=== PATIENT | female | born 1965 | race Two or more races ===

== ENCOUNTER 2017-03-25 11:16 | Emergency (ER) | payer SELFPAY ==
[2017-03-25 11:52] VITALS: BP 117/71
[2017-03-25] MEDS ORDERED: Ibuprofen TAB* 600 MG PO ONE (11:59)
--- NOTE | 2017-03-25 12:21 | RAD ---
HISTORY: Right foot pain COMPARISONS: None VIEWS: 3, Frontal, lateral, and oblique views of the right foot FINDINGS: BONE DENSITY: Normal. BONES: There is no displaced fracture. There is a calcaneal enthesophyte. JOINTS: There is mild osteophytosis of the first MTP joint ALIGNMENT: There is no dislocation. SOFT TISSUES: Unremarkable. OTHER FINDINGS: None. IMPRESSION: MILD DEGENERATIVE CHANGES. NO ACUTE OSSEOUS INJURY. IF SYMPTOMS PERSIST, RECOMMEND REPEAT IMAGING.
--- NOTE | 2017-03-25 12:45 | UC ---
Berkley Duron Auryana, scribed for Abel Juarez MD on 03/25/17 at 1203 . Lower Extremity/Ankle HPI - HPI Summary HPI Summary: 51 year old females presents with right foot pain. She reports that she fell down this stairs at 09:30 this morning. She states that the pain radiates up the right calf and mildly swollen. Ambulation makes the pain worse and states there was no improvement with elevation. 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 PMHx is significant for osteoporosis - History of Current Complaint Chief Complaint: UCLowerExtremity Stated Complaint: FELL-RIGHT FOOT Time Seen by Provider: 03/25/17 11:47 Hx Obtained From: Patient Hx Last Menstrual Period: menapause ?: No Onset/Duration: Sudden Onset, Lasting Hours - stating this morning at 09:30, Still Present Severity Initially: Mild Severity Currently: Mild Aggravating Factor(s): Ambulation Alleviating Factor(s): Nothing Able to Bear Weight: No - limping and must have help Related History: Other - fell down stairs - Allergies/Home Medications Allergies/Adverse Reactions: Allergies Allergy/AdvReac Type Severity Reaction Status Date / Time Molds & Smuts Allergy Severe CAN'T Verified 06/11/16 15:07 BREATHE, HIVES Penicillins Allergy Severe Shortness Verified 06/11/16 15:07 of Breath Aspirin Allergy Intermediate Nausea And Verified 06/11/16 15:07 Vomiting Naproxen [From Aleve] Allergy Mild Vomiting Verified 06/11/16 15:07 CHIPOTLE Allergy Severe "SICK", Uncoded 06/11/16 15:07 NAUSEA CLAMS Allergy Severe HIVES, Uncoded 06/11/16 15:07 "MAKES ME SICK" ENVIRONMENTAL Allergy Unknown Unknown Uncoded 06/11/16 15:07 Reaction Details MICE Allergy Unknown Unknown Uncoded 06/11/16 15:08 Reaction Details PMH/Surg Hx/FS Hx/Imm Hx Endocrine History Of: Denies: Diabetes, Thyroid Disease Cardiovascular History Of: Reports: Cardiac Disorders - MURMUR Denies: Hypertension Respiratory History Of: Reports: Asthma - uses nebulizer, Bronchitis Denies: COPD GI/ History Of: Denies: Ulcer Cancer History Of: Denies: Breast Cancer - Surgical History Surgical History: Yes Surgery Procedure, Year, and Place: tubal ligation. cholecystectomy - Family History Known Family History: Positive: Hypertension, Diabetes, Other - cervical cancer - Social History Occupation: Disabled Lives: With Family Alcohol Use: None Substance Use Type: None Smoking Status (MU): Heavy Every Day Tobacco Smoker Type: Cigarettes Amount Used/How Often: 10-12 cigs daily Length of Time of Smoking/Using Tobacco: 20+ years Have You Smoked in the Last Year: Yes Review of Systems Constitutional: Negative Skin: Negative Eyes: Negative ENT: Negative Respiratory: Negative Cardiovascular: Negative Gastrointestinal: Negative Genitourinary: Negative Motor: Negative Neurovascular: Negative Musculoskeletal: Edema - at the first MCP on the right foot, Other: - pain at the first MCP on the right foot Neurological: Negative Psychological: Negative All Other Systems Reviewed And Are Negative: Yes Physical Exam Triage Information Reviewed: Yes Appearance: Well-Nourished, Pain Distress - mild Vital Signs: Initial Vital Signs Temp 98.4 F 03/25/17 11:42 Pulse 65 03/25/17 11:42 Resp 18 03/25/17 11:42 BP 117/71 03/25/17 11:42 Pulse Ox 98 03/25/17 11:42 Vital Signs Reviewed: Yes Eyes: Positive: Conjunctiva Clear Neck: Positive: Supple Respiratory: Positive: Lungs clear Cardiovascular: Positive: RRR Bowel Sounds: Positive: Present Musculoskeletal: Positive: Edema @ - at site of injury, Other: - tenderness at the right first MCP of the foot Neurological: Positive: Alert Psychological: Positive: Age Appropriate Behavior Skin Exam: Normal, Other - no break in the skin Diagnostics - Radiology R FOOT XR Xray Interpretation: No Acute Changes - IMPRESSION: MILD DEGENERATIVE CHANGES. NO ACUTE OSSEOUS INJURY. IF SYMPTOMS PERSIST, RECOMMEND REPEAT Radiology Interpretation Completed By: Radiologist Lower Extremity Course/Dx - Course Course Of Treatment: HOME WITH CAM WALKER - Differential Dx/Diagnosis Provider Diagnoses: RT FOOT SPRAIN Discharge - Discharge Plan Condition: Stable Disposition: HOME Patient Education Materials: Foot Sprain (ED) Referrals: Madhavi Moreno MD [Primary Care Provider] - Additional Instructions: FOLLOW UP WITH YOUR DOCTOR. GO THE EMERGENCY DEPARTMENT WITH ANY WORSENING OF YOUR CONDITION OR QUESTIONS OR CONCERNS. The documentation as recorded by the Berkley chase Auryana accurately reflects the service I personally performed and the decisions made by , Abel Juarez MD.
== END 2017-03-25 12:52 | disposition home or self-care (01) ==
LOC: UCEAST 11:16
DX: S93.601A Unspecified sprain of right foot, initial encounter (principal); W10.9XXA Fall (on) (from) unspecified stairs and steps, initial encounter; Y93.9 Activity, unspecified; Y92.9 Unspecified place or not applicable; J45.909 Unspecified asthma, uncomplicated; R01.1 Cardiac murmur, unspecified; Z90.49 Acquired absence of other specified parts of digestive tract; Z88.6 Allergy status to analgesic agent; Z88.0 Allergy status to penicillin; F17.210 Nicotine dependence, cigarettes, uncomplicated
CPT/HCPCS: 99213; A9270-GY; G0463

== ENCOUNTER 2017-06-27 09:43 | Emergency (ER) | payer MEDICARE, OTHER ==
[2017-06-27 09:49] VITALS: BP 120/67
[2017-06-27] MEDS ORDERED: Ketorolac INJ* 60 MG/2 ML VIAL IM ONE (10:32)
--- NOTE | 2017-06-27 10:41 | ED ---
Lower Extremity - HPI Summary HPI Summary: Patient presents with left ankle pain without injury. She notes to swelling x 2 weeks which dissipated yesterday, but continues with 8/10 constant pain not worse with palpation. Better with rest, worse with ambulating. Pain is located diffusely throughout the ankle, but worse medially and anteriorly over the dorsum of the foot. She also notes to right shoulder pain x 2 days and this morning felt a "pop" while stretching. She has no limit to her ROM and pain does not radiate. PMHx includes arthritis and is followed by her PCP. Good pulses +2 bilaterally. Good capillary refill <2 sec. Denies other illness. Thorough physical exam was performed, focusing on ankle special tests including foot exam. Pain on palpation over medial aspect and superior aspect with involvement of the deltoid ligaments. No pain on palpation over lateral side. Anterior drawer test negative, talar tilt test negative. Huizar test negative, although performed in supine position. Limited ROM. Dorsiflexion, great toe extension and plantar flexion intact. No pain on palpation over medial or lateral lower extremity. No pain in the calf and patient denies recent surgery or travel. No pain with knee flexion. Pulses intact bilaterally. No temperature change or pallor noted bilaterally. No ecchymosis and swelling noted on lateral aspect. No lesion or disruption of skin is seen. Able to bear weight. Shoulder exams performed with no acute findings. Will defer at this time for xray and patient agrees. - History of Current Complaint Chief Complaint: EDExtremityLower Stated Complaint: LEFT ANKLE PAIN, RIGHT SHOULDER INJURY Time Seen by Provider: 06/27/17 09:52 Hx Obtained From: Patient Hx Last Menstrual Period: menapause Mechanism Of Injury: Unknown Onset of Pain: Days Onset/Duration: Weeks Severity Initially: Moderate Severity Currently: Moderate Pain Intensity: 4 Pain Scale Used: 0-10 Numeric Timing: Constant Location: Is Discrete @ - left ankle medially Associated Signs And Symptoms: Positive: Negative Aggravating Factor(s): Standing, Ambulation Alleviating Factor(s): Rest - Allergies/Home Medications Allergies/Adverse Reactions: Allergies Allergy/AdvReac Type Severity Reaction Status Date / Time Molds & Smuts Allergy Severe CAN'T Verified 06/11/16 15:07 BREATHE, HIVES Penicillins Allergy Severe Shortness Verified 06/11/16 15:07 of Breath Aspirin Allergy Intermediate Nausea And Verified 06/11/16 15:07 Vomiting Naproxen [From Aleve] Allergy Mild Vomiting Verified 06/11/16 15:07 CHIPOTLE Allergy Severe "SICK", Uncoded 06/11/16 15:07 NAUSEA CLAMS Allergy Severe HIVES, Uncoded 06/11/16 15:07 "MAKES ME SICK" ENVIRONMENTAL Allergy Unknown Unknown Uncoded 06/11/16 15:07 Reaction Details MICE Allergy Unknown Unknown Uncoded 06/11/16 15:08 Reaction Details PMH/Surg Hx/FS Hx/Imm Hx Previously Healthy: Yes Endocrine/Hematology History: Denies: Hx Diabetes, Hx Thyroid Disease Cardiovascular History: Denies: Hx Hypertension Respiratory History: Reports: Hx Asthma - uses nebulizer Denies: Hx Chronic Obstructive Pulmonary Disease (COPD) - never been diagnosed GI History: Denies: Hx Ulcer Musculoskeletal History: Reports: Hx Osteoporosis - Cancer History Cancer Type, Location and Year: denies Hx Chemotherapy: No Hx Radiation Therapy: No - Surgical History Surgery Procedure, Year, and Place: tubal ligation. cholecystectomy - Immunization History Date of Tetanus Vaccine: unknown Date of Influenza Vaccine: UTD Hx Pertussis Vaccination: No Immunizations Up to Date: Unable to Obtain/Confirm Infectious Disease History: No Infectious Disease History: Denies: Hx Clostridium Difficile, Hx Hepatitis, Hx Human Immunodeficiency Virus (HIV), Hx of Known/Suspected MRSA, Hx Shingles, Hx Tuberculosis, Hx Known/ Suspected VRE, Hx Known/Suspected VRSA, History Other Infectious Disease, Traveled Outside the [place] in Last 30 Days - Family History Known Family History: Positive: Hypertension, Diabetes, Other - cervical cancer - Social History Occupation: Unemployed, Employed Full-time Lives: With Family Alcohol Use: None Hx Substance Use: No Substance Use Type: Reports: None Hx Tobacco Use: Yes Smoking Status (MU): Heavy Every Day Tobacco Smoker Type: Cigarettes Amount Used/How Often: 10-12 cigs daily Length of Time of Smoking/Using Tobacco: 20+ years Have You Smoked in the Last Year: Yes Review of Systems Constitutional: Negative Eyes: Negative Positive: Palpitations Respiratory: Negative Positive: no symptoms reported, see HPI Positive: Arthralgia, Myalgia Skin: Negative Neurological: Negative All Other Systems Reviewed And Are Negative: Yes Physical Exam Triage Information Reviewed: Yes Vital Signs On Initial Exam: Initial Vitals Temp Pulse Resp BP Pulse Ox 97.3 F 71 17 120/67 98 06/27/17 09:46 06/27/17 09:46 06/27/17 09:46 06/27/17 09:46 06/27/17 09:46 Vital Signs Reviewed: Yes Appearance: Positive: Well-Appearing, Well-Nourished Skin: Positive: Warm, Skin Color Reflects Adequate Perfusion Neck: Positive: Supple, No Lymphadenopathy Respiratory/Lung Sounds: Positive: Clear to Auscultation, Breath Sounds Present Musculoskeletal: Positive: Normal - see HPI Neurological: Positive: Sensory/Motor Intact, Alert, Oriented to Person Place, Time, Speech Normal Psychiatric: Positive: Normal Diagnostics - Vital Signs Vital Signs Temp Pulse Resp BP Pulse Ox 06/27/17 10:10 97.3 F 71 20 120/67 98 06/27/17 09:46 97.3 F 71 17 120 98 - Laboratory Lab Statement: Any lab studies that have been ordered have been reviewed, and results considered in the medical decision making process. Lower Extremity Course/Dx - Course Course Of Treatment: Based on [place] [facility] Rules, patient sent to imaging. Xray negative for fracture or other acute findings. Medial and lateral distal lower extremity without pain and x-rays show no widening of the ankle joint regarding low suspicion for Maisonneuve fx. Ankle was malorie wrapped to patient comfort to allow for immobilization for this period of time. Patient given orthopedic follow up in 5-7 days. Encouraged Ibuprofen 600mg three times daily with meals for pain. Return precautions given. Educated patient regarding ankle injuries and healing time and the possibility of further evaluation and imaging as orthopedist sees fit. - Diagnoses Differential Diagnosis/HQI/PQRI: Positive: Fracture (Closed), Sprain, Strain Provider Diagnoses: Arthritis Discharge - Discharge Plan Condition: Stable Disposition: HOME Prescriptions: Ketorolac TAB * [Toradol TAB *] 10 mg PO Q6H #16 tab Patient Education Materials: Osteoarthritis (ED) Referrals: Madhavi Moreno MD [Primary Care Provider] - Additional Instructions: Toradol x 4 days Do not take ibuprofen with this medication Ibuprofen 600mg three times daily with meals for pain. Follow up with orthopedic physician in 5-7 days. If numbness, tingling, decreased sensation, increased pain, temperature changes or pallor noted in toes, come back to ER immediately. Ice. Not directly on the skin. Cover with a towel. Apply ice no more than 30 minutes at a time Compression: You may use and keep an malorie wrap bandage over the injury to decrease swelling. Again, this should be limited and be taken off periodically to encourage early range of motion and mobilization. Elevate: Try to elevate the injured area above the heart whenever possible.
--- NOTE | 2017-06-27 11:17 | RAD ---
Indication: LEFT ankle pain and swelling without proceeding injury. Attention medial aspect. Comparison: No relevant prior exams available on the [facility] for comparison. Technique: AP, mortise, and lateral views LEFT ankle. Report: Negative for fracture or malalignment. Mild osteophytosis at the talocrural joint. Potential 3 mm loose body at the posterior joint recess. Suggestion of small talocrural joint effusion at the posterior recess. Small plantar fascia origin and Achilles tendon insertion bone spurs. Mild nonfocal soft tissue swelling. IMPRESSION: Mild talocrural joint osteoarthritis with potential small loose body at the posterior joint recess.
== END 2017-06-27 11:53 | disposition home or self-care (01) ==
LOC: ED 09:43
DX: M19.072 Primary osteoarthritis, left ankle and foot (principal); M81.0 Age-related osteoporosis without current pathological fracture; J45.909 Unspecified asthma, uncomplicated; Z90.49 Acquired absence of other specified parts of digestive tract; Z88.6 Allergy status to analgesic agent; Z88.0 Allergy status to penicillin; F17.210 Nicotine dependence, cigarettes, uncomplicated
CPT/HCPCS: 96372; 99282; J1885

== ENCOUNTER 2018-01-03 20:35 | Emergency (ER) | payer MEDICARE, MEDICAID ==
[2018-01-03] MEDS ORDERED: Dexamethasone TAB* 4 MG PO ONE (21:24)
[2018-01-03] MEDS ORDERED: Ketorolac INJ* 60 MG/2 ML VIAL IM ONE (21:24)
[2018-01-03] MEDS ORDERED: Lidocaine PATCH 5%* 1 PATCH TRANSDERM SCH (22:00)
--- NOTE | 2018-01-03 22:07 | ED ---
Back Pain - HPI Summary HPI Summary: 52-year-old female presents with right-sided lower back pain today. She has history of osteoporosis and told not to lift her leg. She forgot and stepped out of the shower and lifted her leg. She states she felt a pop in her lower back. She states it started her sciatic pain down her right leg. She denies any saddle anaesthesia or loss of bowel or bladder. She states the tingling starts in the SI joint and travels down her right leg. She has not taken anything for her pain. She generally takes Motrin for her pain. She has history of chronic back pain. She denies any fevers. She denies any other injury. She denies any chest pain or shortness of breath. - History of Current Complaint Chief Complaint: EDFlankPain Stated Complaint: RT SIDE FLANK PAIN Time Seen by Provider: 01/03/18 20:58 Hx Last Menstrual Period: menapause Pain Intensity: 8 - Allergies/Home Medications Allergies/Adverse Reactions: Allergies Allergy/AdvReac Type Severity Reaction Status Date / Time clams Allergy Hives Verified 01/03/18 20:48 mold Allergy Anaphylatic Verified 01/03/18 20:48 Shock Penicillins Allergy Shortness Verified 01/03/18 20:48 of Breath NSAIDS (Non-Steroidal AdvReac Nausea And Verified 01/03/18 22:01 Anti-Inflamma Vomiting ENVIRONMENTAL Allergy Unknown Unknown Uncoded 01/03/18 20:48 Reaction Details MICE Allergy Unknown Unknown Uncoded 01/03/18 20:48 Reaction Details CHIPOTLE AdvReac Severe "SICK", Uncoded 01/03/18 22:01 NAUSEA PMH/Surg Hx/FS Hx/Imm Hx Endocrine/Hematology History: Denies: Hx Diabetes, Hx Thyroid Disease Cardiovascular History: Denies: Hx Hypertension Respiratory History: Reports: Hx Asthma - uses nebulizer Denies: Hx Chronic Obstructive Pulmonary Disease (COPD) - never been diagnosed GI History: Denies: Hx Ulcer Musculoskeletal History: Reports: Hx Osteoporosis - Cancer History Cancer Type, Location and Year: denies Hx Chemotherapy: No Hx Radiation Therapy: No - Surgical History Surgery Procedure, Year, and Place: tubal ligation. cholecystectomy - Immunization History Date of Tetanus Vaccine: unknown Date of Influenza Vaccine: UTD Immunizations Up to Date: Yes Infectious Disease History: No Infectious Disease History: Denies: Hx Clostridium Difficile, Hx Hepatitis, Hx Human Immunodeficiency Virus (HIV), Hx of Known/Suspected MRSA, Hx Shingles, Hx Tuberculosis, Hx Known/ Suspected VRE, Hx Known/Suspected VRSA, History Other Infectious Disease, Traveled Outside the [place] in Last 30 Days - Family History Known Family History: Positive: Hypertension, Diabetes, Other - cervical cancer - Social History Alcohol Use: None Hx Substance Use: No Substance Use Type: Reports: None Hx Tobacco Use: Yes Smoking Status (MU): Heavy Every Day Tobacco Smoker Type: Cigarettes Amount Used/How Often: 10-12 cigs daily Length of Time of Smoking/Using Tobacco: 20+ years Have You Smoked in the Last Year: Yes Review of Systems Negative: Fever Negative: Chest Pain Negative: Shortness Of Breath Positive: Myalgia - back and right leg pain All Other Systems Reviewed And Are Negative: Yes Physical Exam Triage Information Reviewed: Yes Vital Signs On Initial Exam: Initial Vitals Temp Pulse Resp BP Pulse Ox 98.0 F 74 18 115/67 96 01/03/18 20:42 01/03/18 20:42 01/03/18 20:42 01/03/18 20:42 01/03/18 20:42 Vital Signs Reviewed: Yes Appearance: Positive: Well-Appearing Skin: Positive: Warm, Dry Head/Face: Positive: Normal Head/Face Inspection Eyes: Positive: Normal, Conjunctiva Clear Respiratory/Lung Sounds: Positive: Clear to Auscultation, Breath Sounds Present Cardiovascular: Positive: Normal, RRR Musculoskeletal: Positive: Limited @, Other - tenderness over SI joint back, sensation grossly intact, pos SLR right, good pulses Neurological: Positive: Sensory/Motor Intact Psychiatric: Positive: Normal Diagnostics - Vital Signs Vital Signs Temp Pulse Resp BP Pulse Ox 01/03/18 20:42 98.0 F 74 18 115/67 96 - Laboratory Lab Statement: Any lab studies that have been ordered have been reviewed, and results considered in the medical decision making process. - Radiology lumbar Xray Interpretation: No Acute Changes Radiology Interpretation Completed By: Radiologist Back Pain Course/Dx - Course Assessment/Plan: 52-year-old female presents with right-sided lower back pain today. She has history of osteoporosis and told not to lift her leg. She forgot and stepped out of the shower and lifted her leg. She states she felt a pop in her lower back. She states it started her sciatic pain down her right leg. She denies any saddle anaesthesia or loss of bowel or bladder. She states the tingling starts in the SI joint and travels down her right leg. She has not taken anything for her pain. She generally takes Motrin for her pain. She has history of chronic back pain. She denies any fevers. She denies any other injury. She denies any chest pain or shortness of breath. on exam tenderness over right side of lower back, pos SLR, tenderness over SI joint right, sensation grossly intact. CT spine no fracture. will treat with lidocaine patch and medrol. patient understand and agrees with plan. - Diagnoses Differential Diagnosis/HQI/PQRI: Positive: Fracture, Herniated Disc, Strain, Sprain Provider Diagnoses: Back pain Discharge - Discharge Plan Condition: Good Disposition: HOME Prescriptions: Lidocaine PATCH 5%* [Lidoderm 5% Patch*] 1 patch TRANSDERM DAILY #5 patch methylPREDNISolone [Medrol Dosepak 4 MG*] 4 mg PO .SEE RAFAEL INSTRUCTION #1 packet Patient Education Materials: Back Pain (ED) Referrals: Madhavi Moreno MD [Primary Care Provider] - Additional Instructions: Follow directions on package for Medrol pack Apply lidocaine patches to area for up to 12 hours in one 24 hour period Use ibuprofen or Tylenol for pain every 6 hours ice/heat area, move as much as possible Follow up with primary within 5 days Return to ED if develop any new or worsening symptoms
[2018-01-03] MEDS ORDERED: Lidocaine PATCH 5%* 1 PATCH ONE (22:11)
[2018-01-04] VITALS: BP 118/60
--- NOTE | 2018-01-04 07:49 | RAD ---
HISTORY: Right-sided back pain, right flank pain COMPARISONS: None TECHNIQUE: Multiple contiguous axial CT scans were obtained of the lumbar spine without intravenous contrast, with coronal and sagittal multiplanar reformations. FINDINGS: SPINAL CANAL: Evaluation of the central canal is limited on CT technique; however, there is no obvious canalicular mass or epidural hemorrhage. ALIGNMENT: There is a mild levoscoliotic curvature of the spine. VERTEBRAL BODIES: The vertebral bodies are preserved in height. The bones are normal in attenuation. JOINTS: There is mild facet hypertrophic change along the lower lumbar spine MUSCULATURE: Normal INTERVERTEBRAL DISCS: There is mild diffuse loss of intervertebral disc height throughout the spine. AXIAL IMAGES: T12-L1: There is no osseous neural foraminal narrowing or central canal stenosis. L1-L2: There is no osseous neural foraminal narrowing or central canal stenosis. L2-L3: There is no osseous neural foraminal narrowing or central canal stenosis. L3-L4: There is a mild broad-based disc bulge. There is no osseous neural foraminal narrowing or central canal stenosis. L4-L5: There is a broad-based disc bulge. There is no osseous neural foraminal narrowing or central canal stenosis. L5-S1: There is a mild broad-based disc bulge. There is no osseous neural foraminal narrowing or central canal stenosis. SOFT TISSUES: There is mild calcific atherosclerosis of the abdominal aorta. OTHER: None IMPRESSION: MILD DEGENERATIVE DISC DISEASE AND OSTEOARTHRITIS, WITHOUT OSSEOUS NEURAL FORAMINAL AREA OR CENTRAL CANAL STENOSIS.
== END 2018-01-04 | disposition home or self-care (01) ==
LOC: ED 20:35
DX: M54.5 Low back pain (principal); F17.210 Nicotine dependence, cigarettes, uncomplicated
CPT/HCPCS: 72131; 96372; 99282; A9270-GY; J1885; J8540

== ENCOUNTER 2018-04-15 07:03 | Emergency (ER) | payer MEDICAID, MEDICARE ==
[2018-04-15 07:22] VITALS: BP 127/59
--- NOTE | 2018-04-15 08:07 | RAD ---
HISTORY: Right foot great toe pain, trauma COMPARISONS: March 25, 2017 VIEWS: 6, Frontal, lateral, and oblique views of the right foot and great toe FINDINGS: BONE DENSITY: Normal. BONES: There is no displaced fracture. There are calcaneal enthesophytes. JOINTS: There is mild osteoarthritis of the first MTP joint. ALIGNMENT: There is no dislocation. SOFT TISSUES: Unremarkable. OTHER FINDINGS: None. IMPRESSION: MILD OSTEOARTHRITIS. NO ACUTE OSSEOUS INJURY. IF SYMPTOMS PERSIST, RECOMMEND REPEAT IMAGING.
--- NOTE | 2018-04-15 08:35 | UC ---
Lower Extremity/Ankle HPI - HPI Summary HPI Summary: 52 yo WF c/o right great toe and foot pain after dropping a VCR player on her right foot yesterday and now swollen and PAINFUL - History of Current Complaint Chief Complaint: UCLowerExtremity Stated Complaint: FOOT INJURY Time Seen by Provider: 04/15/18 07:49 Hx Obtained From: Patient Hx Last Menstrual Period: menapause Severity Initially: Moderate Severity Currently: Moderate Pain Intensity: 4 Pain Scale Used: 0-10 Numeric Aggravating Factor(s): Standing Able to Bear Weight: Yes - Allergies/Home Medications Allergies/Adverse Reactions: Allergies Allergy/AdvReac Type Severity Reaction Status Date / Time clams Allergy Hives Verified 04/15/18 07:22 mold Allergy Anaphylatic Verified 04/15/18 07:22 Shock Penicillins Allergy Shortness Verified 04/15/18 07:22 of Breath NSAIDS (Non-Steroidal AdvReac Nausea And Verified 04/15/18 07:22 Anti-Inflamma Vomiting ENVIRONMENTAL Allergy Unknown Unknown Uncoded 04/15/18 07:22 Reaction Details MICE Allergy Unknown Unknown Uncoded 04/15/18 07:22 Reaction Details CHIPOTLE AdvReac Severe "SICK", Uncoded 04/15/18 07:22 NAUSEA PMH/Surg Hx/FS Hx/Imm Hx Previously Healthy: Yes - Surgical History Surgical History: None Surgery Procedure, Year, and Place: tubal ligation. cholecystectomy - Family History Known Family History: Positive: Hypertension, Diabetes, Other - cervical cancer - Social History Alcohol Use: None Substance Use Type: None Smoking Status (MU): Heavy Every Day Tobacco Smoker Type: Cigarettes Amount Used/How Often: 7 cigs daily Length of Time of Smoking/Using Tobacco: 20+ years Have You Smoked in the Last Year: Yes Review of Systems Constitutional: Negative Skin: Negative Eyes: Negative ENT: Negative Respiratory: Negative Cardiovascular: Negative Gastrointestinal: Negative Genitourinary: Negative Motor: Negative Neurovascular: Negative Musculoskeletal: Other: - right swollen foot Neurological: Negative Psychological: Negative All Other Systems Reviewed And Are Negative: Yes Physical Exam Triage Information Reviewed: Yes Appearance: Well-Appearing Vital Signs: Initial Vital Signs Temp 36.5 C 04/15/18 07:14 Pulse 73 04/15/18 07:14 Resp 14 04/15/18 07:14 BP 127/59 04/15/18 07:14 Pulse Ox 99 04/15/18 07:14 Eye Exam: Normal ENT Exam: Normal Dental Exam: Normal Neck exam: Normal Neck: Positive: 1 Respiratory Exam: Normal Cardiovascular Exam: Normal Abdominal Exam: Normal Musculoskeletal: Positive: Other: - right 1st toe MTPJ tenderness and swelling Neurological Exam: Normal Psychological Exam: Normal Skin Exam: Normal Lower Extremity Course/Dx - Course Course Of Treatment: XR of right great toe and foot neg for fx or dislocation - Differential Dx/Diagnosis Provider Diagnoses: right foot injury. right 1st toe metatarsal injury and pain Discharge - Sign-Out/Discharge Documenting (check all that apply): Discharge/Admit/Transfer - Discharge Plan Condition: Stable Disposition: HOME Patient Education Materials: Swollen Joint (ED) Referrals: Madhavi Moreno MD [Primary Care Provider] - - Billing Disposition and Condition Condition: STABLE Disposition: HOME
== END 2018-04-15 08:25 | disposition home or self-care (01) ==
LOC: UCEAST 07:03
DX: S99.921A Unspecified injury of right foot, initial encounter (principal); F17.210 Nicotine dependence, cigarettes, uncomplicated; Z88.0 Allergy status to penicillin; Z88.6 Allergy status to analgesic agent; Z91.048 Other nonmedicinal substance allergy status; W20.8XXA Other cause of strike by thrown, projected or falling object, initial encounter; Y92.9 Unspecified place or not applicable
CPT/HCPCS: 99212; G0463

== ENCOUNTER 2018-07-01 08:37 | Emergency (ER) | payer MEDICARE ==
--- OUTSIDE RECORDS SUMMARY | 2018-07-01 08:47 | XMS REPORT ---
:1965 External Reference #:[id number] Author Organization [facility] Address [address] [place] [address] Phone [phone] Care Team Providers Name Role Phone Madhavi Moreno MD Care Team Information Environmental Safety Specialist Unavailable Madhavi Moreno MD Primary Care Physician Unavailable Payers Type Date Identification Numbers Payment Provider Subscriber Medicare Primary Effective: Policy Number: Medicare [place] 2017 [id number] PayID: [id number] [address] [place] [address] Medigap Part B Policy Number: [id number] Medicaid [place] Reynolds PayID: [id number] [address] [place] [address] Health Maintenance Expires: [facility] 04/22/2017 [id number] [place] PayID: [id number] [address] [address] [place] [address] Problems Date Description Provider Status Onset: 01/26/2017 Allergic rhinitis due to pollen Triston Lezama MD Active Onset: 01/26/2017 Allergic rhinitis Triston Lezama MD Active Onset: 01/26/2017 Uncomplicated moderate persistent Triston Lezama MD Active asthma Onset: 06/18/2018 Asthma without status asthmaticus KORIN Munguia Active Family History Date Family Member(s) Problem(s) Comments General No Current Problems Social History Type Date Description Comments Smoking Patient has never smoked Allergies, Adverse Reactions, Alerts Date Description Reaction Status Severity Comments 05/02/2015 Cats active 05/02/2015 Dust Mite active 05/02/2015 House Dust active 05/02/2015 Dogs active Medications Medication Date Status Form Strength Qnty SIG Indications Ordering Provider Flonase 06/18 Active Suspension 27.5mcg/S 15.80 one spray J30.89 Christopher Sensimist pray 0ml in each Milvia Lezama MD nostril daily Advair Diskus 06/24 Active Aerosol 500-50mcg 60uni Inhale One J30.1 Abdulaziz Davies, /Dose ts puff By PA Mouth Twice A Day Fexofenadine 04/01 Active Tablets 180mg 30tab take one opher HCL s tablet by Milvia Lezama MD mouth every day Allergy 24-HR 01/26 Active Tablets 180mg 30tab 1 by mouth s every day Milvia Lezama MD Proventil HFA 07/09 Active Aerosol 108(90Bas 6.700 Inhale Two e) gm Puffs Every FORTUNATO Bentley mcg/Act 4 Hours as Needed Albuterol Active Nebulizer (2.5mg/3M inhale 3 Unknown Sulfate /0000 L) 0.083% milliliters (2.5 mg) by nebulizatio n route 4 times per day as needed Calcium 600-D 00 Active Tablets 600-400mg 1 by mouth Unknown /0000 -Unit twice a day Prednisone 05/07 Hx Tablets 10mg 18tab take 3 s tablets by Milvia Lezama MD - mouth twice 06/17 a day for days. take with food. Dulera 01/26 Hx Aerosol 200-5mcg/ 8.800 2 puff J30.1 Act gm twice a day Milvia Lezama MD - 06/24 Advair Diskus 08/11 Hx Aerosol 250-50mcg 60uni Inhale One /Dose ts puff By FORTUNATO Bentley - Mouth Twice 01/26 A Day In The Morning And Evening 12 Hours Apart Zyrtec 05/02 Hx Tablet 10mg 30tab Take One s Tablet By FORTUNATO Bentley - Mouth Once 01/26 Daily Needed Medications Administered in Office Medication Date Status Form Strength Qnty SIG Indications Ordering Provider Allergy 06/18/ Administered Injection Christopher Injection 2 2017 Milvia Lezama MD Or More Allergy 06/04/ Administered Injection Christopher Injection 2018 Milvia Lezama MD Single Allergy 05/21/ Administered Injection Christopher Injection 2 2017 Milvia Lezama MD Or More Allergy /15/ Administered Injection Christopher Injection 2 2017 Milvia Lezama MD Or More Allergy // Administered Injection Christopher Injection 2 2017 Milvia Lezama MD Or More Allergy 04/09/ Administered Injection Christopher Injection 2 2017 Milvia Lezama MD Or More Allergy 05/04/ Administered Injection Christopher Injection 2 2017 Milvia Lezama MD Or More Allergy 03/12/ Administered Injection Christopher Injection 2 2017 Milvia Lezama MD Or More Allergy 04// Administered Injection Christopher Injection 2 2017 Milvia Lezama MD Or More Allergy 02/12/ Administered Injection Christopher Injection 2 2017 Milvia Lezama MD Or More Allergy 01/15/ Administered Injection Christopher Injection 2 2017 Milvia Lezama MD Or More Allergy 12/09/ Administered Injection Christopher Injection 2 2017 Milvia Lezama MD Or More Allergy // Administered Injection Christopher Injection 2 2016 Milvia Lezama MD Or More Allergy 10/14/ Administered Injection Christopher Injection 2 2016 Milvia Lezama MD Or More Allergy 09/16/ Administered Injection Christopher Injection 2 2016 Milvia Lezama MD Or More Allergy // Administered Injection Christopher Injection 2 2016 Milvia Lezama MD Or More Allergy 08/19/ Administered Injection Christopher Injection 2 2017 Milvia Lezama MD Or More Allergy // Administered Injection Christopher Injection 2 2016 Milvia Lezama MD Or More Allergy 07/22/ Administered Injection Christopher Injection 2 2016 Milvia Lezama MD Or More Allergy /16/ Administered Injection Christopher Injection 2 2016 Milvia Lezama MD Or More Allergy 08/02/ Administered Injection Christopher Injection 2 2016 Milvia Lezama MD Or More Allergy 06/12/ Administered Injection Christopher Injection 2 2016 Milvia Lezama MD Or More Allergy // Administered Injection Christopher Injection 2 2016 Milvia Lezama MD Or More Allergy // Administered Injection Christopher Injection 2 2016 Milvia Lezama MD Or More Allergy // Administered Injection Christopher Injection 2 2016 Milvia Lezama MD Or More Allergy // Administered Injection Christopher Injection 2 2016 Milvia Lezama MD Or More Allergy 03/18/ Administered Injection Christopher Injection 2 2016 Milvia Lezama MD Or More Allergy 04/03/ Administered Injection Christopher Injection 2 2016 Milvia Lezama MD Or More Allergy 02/09/ Administered Injection Christopher Injection 2 2016 Milvia Lezama MD Or More Allergy // Administered Injection Christopher Injection 2 2016 Milvia Lezama MD Or More Allergy 01/12/ Administered Injection Christopher Injection 2 2016 Milvia Lezama MD Or More Allergy // Administered Injection Christopher Injection 2 2016 Milvia Lezama MD Or More Allergy 12/12/ Administered Injection Christopher Injection 2 2016 Milvia Lezama MD Or More Allergy // Administered Injection Christopher Injection 2 2016 Milvia Lezama MD Or More Allergy 11/12/ Administered Injection Christopher Injection 2 2015 Milvia Lezama MD Or More Allergy 10/29/ Administered Injection Christopher Injection 2 2015 Milvia Lezama MD Or More Allergy 10/15/ Administered Injection Christopher Injection 2 2015 Milvia Lezama MD Or More Allergy 10/03/ Administered Injection Christopher Injection 2 2015 Milvia Lezama MD Or More Allergy 09/19/ Administered Injection Christopher Injection 2 2015 Milvia Lezama MD Or More Allergy 09/05/ Administered Injection Christopher Injection 2 2015 Milvia Lezama MD Or More Allergy 08/11/ Administered Injection Christopher Injection 2 2015 Milvia Lezama MD Or More Allergy 07/23/ Administered Injection Christopher Injection 2 2015 Milvia Lezama MD Or More Allergy // Administered Injection Christopher Injection 2 2015 Milvia Lezama MD Or More Allergy 08// Administered Injection Christopher Injection 2 2015 Milvia Lezama MD Or More Allergy 06/16/ Administered Injection Christopher Injection 2 2015 Milvia Lezama MD Or More Allergy 07// Administered Injection Christopher Injection 2 2015 Milvia Lezama MD Or More Allergy // Administered Injection Christopher Injection 2 2015 Milvia Lezama MD Or More Allergy 06// Administered Injection Christopher Injection 2 2015 Milvia Lezama MD Or More Allergy /25/ Administered Injection Christopher Injection 2 2015 Milvia Lezama MD Or More Allergy /18/ Administered Injection Christopher Injection 2 2015 Milvia Lezama MD Or More Allergy /18/ Administered Injection Christopher Injection 2 2015 Milvia Lezama MD Or More Allergy // Administered Injection Christopher Injection 2 2015 Milvia Lezama MD Or More Allergy 03/19/ Administered Injection Christopher Injection 2 2015 Milvia Lezama MD Or More Allergy 03/12/ Administered Injection Christopher Injection 2 2015 Milvia Lezama MD Or More Allergy 03/05/ Administered Injection Christopher Injection 2 2015 Milvia Lezama MD Or More Allergy 02/26/ Administered Injection Christopher Injection 2 2015 Milvia Lezama MD Or More Allergy 02/17/ Administered Injection Christopher Injection 2 2015 Milvia Lezama MD Or More Allergy 01/27/ Administered Injection Christopher Injection 2 2015 Milvia Lezama MD Or More Allergy 01/14/ Administered Injection Christopher Injection 2 2015 Milvia Lezama MD Or More Allergy 01/07/ Administered Injection Christopher Injection 2 2015 Milvia Lezama MD Or More Allergy 12/21/ Administered Injection Christopher Injection 2 2015 Milvia Lezama MD Or More Allergy 12/14/ Administered Injection Christopher Injection 2 2015 Milvia Lezama MD Or More Allergy 12/05/ Administered Injection Christopher Injection 2 2015 Milvia Lezama MD Or More Allergy 11/28/ Administered Injection Christopher Injection 2 2015 Milvia Lezama MD Or More Allergy 11/21/ Administered Injection Christopher Injection 2 2014 Milvia Lezama MD Or More Allergy 11/14/ Administered Injection Christopher Injection 2 2014 Milvia Lezama MD Or More Allergy 11/07/ Administered Injection Christopher Injection 2 2014 Milvia Lezama MD Or More Allergy 10/31/ Administered Injection Christopher Injection 2 2014 Milvia Lezama MD Or More Allergy 10/17/ Administered Injection Christopher Injection 2 2014 Milvia Lezama MD Or More Allergy 10/10/ Administered Injection Christopher Injection 2 2014 Milvia Lezama MD Or More Allergy 10/01/ Administered Injection Christopher Injection 2 2014 Milvia Lezama MD Or More Allergy 09/26/ Administered Injection Christopher Injection 2 2014 Milvia Lezama MD Or More Vital Signs Date Vital Result Comment 06/18/2018 BP Systolic 122 mmHg BP Diastolic 64 mmHg Height 61 inches 5'1" Weight 177.00 lb BMI (Body Mass Index) 33.4 kg/m2 Heart Rate 68 /min Respiratory Rate 18 /min Body Temperature 97.6 F O2 % BldC Oximetry 96 % 01/26/2017 BP Systolic 132 mmHg BP Diastolic 76 mmHg Height 61 inches 5'1" Weight 190.00 lb BMI (Body Mass Index) 35.9 kg/m2 Heart Rate 83 /min Respiratory Rate 16 /min Body Temperature 94.5 F taken x 2 O2 % BldC Oximetry 98 % 05/02/2015 BP Systolic 117 mmHg BP Diastolic 77 mmHg Height 61 inches Weight 175.00 lb Heart Rate 82 /min Results Test Date Test Result H/L Range Note Order 06/18/2018 Nitric Oxide <pending> PFT Supplies <pending> PFT With Bronchodilator <pending> Procedures Date CPT Code Description Status 06/18/2018 47400 Allergy Injection 2 Or More Completed 06/18/2018 41947 Nitric Oxide Gas Determination Completed 06/18/2018 50110 Bronchodilation Responsiveness Spirometry Pre/Post Completed Bronchodil Adm 06/04/2018 61856 Allergy Antigens Single Or Multiple Completed 06/04/2018 33500 Allergy Injection Single Completed 05/21/2018 40201 Allergy Injection 2 Or More Completed 05/07/2018 46381 Allergy Injection 2 Or More Completed 04/23/2018 81497 Allergy Injection 2 Or More Completed 04/09/2018 83729 Allergy Injection 2 Or More Completed 03/26/2018 19040 Allergy Injection 2 Or More Completed 03/12/2018 57632 Allergy Injection 2 Or More Completed 02/26/2018 03106 Allergy Injection 2 Or More Completed 02/12/2018 89677 Allergy Injection 2 Or More Completed 01/15/2018 97709 Allergy Injection 2 Or More Completed 12/09/2017 61792 Allergy Injection 2 Or More Completed 11/11/2017 69957 Allergy Injection 2 Or More Completed 10/21/2017 67726 Allergy Antigens Single Or Multiple Completed 10/14/2017 20880 Allergy Injection 2 Or More Completed 09/16/2017 18651 Allergy Injection 2 Or More Completed 09/04/2017 26977 Allergy Injection 2 Or More Completed 08/19/2017 93067 Allergy Injection 2 Or More Completed 08/05/2017 32186 Allergy Injection 2 Or More Completed 07/22/2017 62683 Allergy Injection 2 Or More Completed 07/08/2017 92684 Allergy Injection 2 Or More Completed 06/24/2017 27239 Allergy Injection 2 Or More Completed 06/12/2017 94036 Allergy Injection 2 Or More Completed 05/29/2017 55565 Allergy Injection 2 Or More Completed 05/13/2017 66016 Allergy Antigens Single Or Multiple Completed 05/13/2017 36960 Allergy Injection 2 Or More Completed 04/29/2017 55521 Allergy Injection 2 Or More Completed 04/08/2017 42653 Allergy Injection 2 Or More Completed 03/18/2017 43270 Allergy Injection 2 Or More Completed 02/23/2017 49028 Allergy Injection 2 Or More Completed 02/09/2017 63666 Allergy Injection 2 Or More Completed 01/26/2017 29222 Allergy Injection 2 Or More Completed 01/26/2017 43119 Nitric Oxide Gas Determination Completed 01/26/2017 54677 Bronchodilation Responsiveness Spirometry Pre/Post Completed Bronchodil Adm 01/12/2017 00416 Allergy Injection 2 Or More Completed 12/29/2016 02117 Allergy Injection 2 Or More Completed 12/12/2016 86950 Allergy Injection 2 Or More Completed 11/26/2016 69924 Allergy Injection 2 Or More Completed 11/19/2016 86571 Allergy Antigens Single Or Multiple Completed 11/12/2016 16234 Allergy Injection 2 Or More Completed 10/29/2016 66113 Allergy Injection 2 Or More Completed 10/15/2016 60419 Allergy Injection 2 Or More Completed 10/03/2016 03107 Allergy Injection 2 Or More Completed 09/19/2016 07755 Allergy Injection 2 Or More Completed 09/05/2016 51752 Allergy Injection 2 Or More Completed 08/11/2016 42692 Allergy Injection 2 Or More Completed 07/23/2016 26484 Allergy Injection 2 Or More Completed 07/09/2016 90102 Allergy Injection 2 Or More Completed 06/27/2016 23506 Allergy Injection 2 Or More Completed 06/16/2016 14920 Allergy Injection 2 Or More Completed 05/28/2016 06399 Allergy Injection 2 Or More Completed 05/20/2016 87048 Allergy Antigens Single Or Multiple Completed 05/09/2016 77165 Allergy Injection 2 Or More Completed 04/23/2016 75396 Allergy Injection 2 Or More Completed 04/16/2016 37588 Allergy Injection 2 Or More Completed 04/09/2016 81518 Allergy Injection 2 Or More Completed 04/09/2016 02267 Allergy Injection 2 Or More Completed 04/04/2016 68762 Allergy Injection 2 Or More Completed 03/19/2016 13499 Allergy Injection 2 Or More Completed 03/12/2016 32788 Allergy Injection 2 Or More Completed 03/05/2016 32773 Allergy Injection 2 Or More Completed 02/27/2016 47507 Allergy Injection 2 Or More Completed 02/18/2016 63052 Allergy Injection 2 Or More Completed 01/28/2016 53566 Allergy Injection 2 Or More Completed 01/14/2016 30465 Allergy Injection 2 Or More Completed 01/07/2016 38351 Allergy Injection 2 Or More Completed 12/21/2015 99152 Allergy Injection 2 Or More Completed 12/14/2015 81957 Allergy Injection 2 Or More Completed 12/05/2015 51949 Allergy Injection 2 Or More Completed 11/28/2015 35064 Allergy Injection 2 Or More Completed 11/21/2015 00130 Allergy Injection 2 Or More Completed 11/14/2015 42215 Allergy Injection 2 Or More Completed 11/07/2015 56701 Allergy Injection 2 Or More Completed 10/31/2015 75994 Allergy Injection 2 Or More Completed 10/17/2015 86801 Allergy Injection 2 Or More Completed 10/10/2015 01409 Allergy Injection 2 Or More Completed 10/01/2015 75167 Allergy Injection 2 Or More Completed 09/26/2015 00074 Allergy Injection 2 Or More Completed Encounters Type Date Location Provider CPT E/M Dx Office Visit 06/18/2018 9:00a KORIN Cabrera 80906 J30.89 J30.1 J45.909 Office Visit 01/26/2017 9:[place] [address] J30.1 J30.89 J45.40 Plan of Care Future Appointment(s):07/02/2018 8:45 am - Injection 1 at [id number]/20/2018 8: 30 am - KORIN Munguia at [facility]
--- OUTSIDE RECORDS SUMMARY | 2018-07-01 08:48 | XMS REPORT ---
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 PayID: [id number] [address] [address] [place] [address] Problems Date Description Provider Status Onset: 01/26/2017 Allergic rhinitis due to pollen Triston Lezama MD Active Onset: 01/26/2017 Allergic rhinitis Triston Lezama MD Active Onset: 01/26/2017 Uncomplicated moderate persistent Triston Lezama MD Active asthma Family History Date Family Member(s) Problem(s) Comments General No Current Problems Social History Type Date Description Comments Smoking Patient has never smoked Allergies, Adverse Reactions, Alerts Date Description Reaction Status Severity Comments 05/02/2015 Cats active 05/02/2015 Dust Mite active 05/02/2015 House Dust active 05/02/2015 Dogs active Medications Medication Date Status Form Strength Qnty SIG Indications Ordering Provider Advair Diskus 06/24 Active Aerosol 500-50mcg 60uni Inhale One J30.1 Abdulaziz Davies, /Dose ts puff By PA Mouth Twice A Day Fexofenadine 04/01 Active Tablets 180mg 30tab Take One s Tablet By Milvia Lezama MD Mouth Every Day Allergy 24-HR 01/26 Active Tablets 180mg 30tab 1 by mouth s every day Milvia Lezama MD Proventil HFA 07/09 Active Aerosol 108(90Bas 6.700 Inhale Two e) gm Puffs Every FORTUNATO Bentley mcg/Act 4 Hours as Needed Albuterol 00 Active Nebulizer (2.5mg/3M inhale 3 Unknown Sulfate /0000 L) 0.083% milliliters (2.5 mg) by nebulization route 4 times per day as needed Calcium 600-D Active Tablets 600-400mg 1 by mouth Unknown /0000 -Unit twice a day Prednisone 05/07 Hx Tablets 10mg 18tab take 3 s tablets by Milvia Lezama MD - mouth twice 06/17 a day for days. take with food. Dulera 01/26 Hx Aerosol 200-5mcg/ 8.800 2 puff twice J30.1 Act gm a day Milvia Lezama MD - 06/24 [...] Allergy 06/18/ Administered Injection Christopher Injection 2 2018 Milvia Lezama MD Or More Allergy 06/04/ Administered Injection Christopher Injection 2018 Milvia Lezama MD Single Allergy 05/21/ Administered Injection Christopher Injection 2 2018 Milvia Lezama MD Or More Allergy 05/07/ Administered Injection Christopher Injection 2 2018 Milvia Lezama MD Or More Allergy 04/23/ Administered Injection Christopher Injection 2 2018 Milvia Lezama MD Or More Allergy 05/18/ Administered Injection Christopher Injection 2 2017 Milvia [...] 2017 Milvia Lezama MD Or More Allergy 11/11/ Administered Injection Christopher Injection 2 2016 Milvia Lezama MD Or More Allergy 10/14/ Administered Injection Christopher Injection 2 2016 Milvia Lezama MD Or More Allergy 09/16/ Administered Injection Christopher Injection 2 2016 Milvia Lezama MD Or More Allergy 09/04/ Administered Injection Christopher Injection 2 2016 Milvia Lezama MD Or More Allergy 08/19/ Administered Injection Christopher Injection 2 2016 Milvia Lezama MD Or More Allergy // Administered Injection Christopher Injection 2 2016 Milvia Lezama MD Or More Allergy 07/22/ Administered Injection Christopher Injection 2 2016 Milvia Lezama MD Or More Allergy // Administered Injection Christopher Injection 2 2016 Milvia Lezama MD Or More Allergy 08// Administered Injection Christopher Injection 2 2016 Milvia Lezama MD Or More Allergy 06/12/ Administered Injection Christopher Injection 2 2016 Milvia Lezama MD Or More Allergy // Administered Injection Christopher Injection 2 2016 Milvia Lezama MD Or More Allergy 05/13/ Administered Injection Christopher Injection 2 2016 Milvia Lezama MD Or More Allergy // Administered Injection Christopher Injection 2 2016 Milvia Lezama MD Or More Allergy // Administered Injection Christopher Injection 2 2016 Milvia Lezama MD Or More Allergy 03/18/ Administered Injection Christopher Injection 2 2016 Milvia Lezama MD Or More Allergy 04// Administered Injection Christopher Injection 2 2016 Milvia [...] Administered Injection Christopher Injection 2 2016 Milvia Leazma MD Or More Allergy 11/12/ Administered Injection [...] 2015 Milvia Lezama MD Or More Allergy 07/06/ Administered Injection Christopher Injection 2 2015 Milvia Lezama MD Or More Allergy // Administered Injection Christopher Injection 2 2015 Milvia Lezama MD Or More Allergy 06// Administered Injection Christopher Injection 2 2015 Milvia Lezama MD Or More Allergy 05/25/ Administered Injection Christopher Injection 2 2015 Milvia Lezama MD Or More Allergy 05/18/ Administered Injection Christopher Injection 2 2015 Milvia [...] 2015 Milvia Lezama MD Or More Allergy 04/06/ Administered Injection Christopher Injection 2 2015 Milvia [...] Administered Injection Christopher Injection 2 2015 Milvia Lezaam MD Or More Allergy 12/05/ Administered Injection [...] 175.00 lb Heart Rate 82 /min Results Description No Information Procedures Date CPT Code Description Status 06/18/2018 79017 Allergy Injection 2 Or More Completed 06/04/2018 32675 Allergy Antigens Single Or Multiple Completed 06/04/2018 69119 Allergy Injection Single Completed 05/21/2018 95642 Allergy Injection 2 Or More Completed 05/07/2018 10078 Allergy Injection 2 Or More Completed 04/23/2018 47063 Allergy Injection 2 Or More Completed 04/09/2018 91937 Allergy Injection 2 Or More Completed 03/26/2018 71457 Allergy Injection 2 Or More Completed 03/12/2018 87519 Allergy Injection 2 Or More Completed 02/26/2018 85813 Allergy Injection 2 Or More Completed 02/12/2018 84046 Allergy Injection 2 Or More Completed 01/15/2018 11693 Allergy Injection 2 Or More Completed 12/09/2017 25459 Allergy Injection 2 Or More Completed 11/11/2017 84412 Allergy Injection 2 Or More Completed 10/21/2017 30822 Allergy Antigens Single Or Multiple Completed 10/14/2017 25756 Allergy Injection 2 Or More Completed 09/16/2017 25360 Allergy Injection 2 Or More Completed 09/04/2017 18425 Allergy Injection 2 Or More Completed 08/19/2017 05169 Allergy Injection 2 Or More Completed 08/05/2017 81261 Allergy Injection 2 Or More Completed 07/22/2017 94291 Allergy Injection 2 Or More Completed 07/08/2017 14723 Allergy Injection 2 Or More Completed 06/24/2017 36429 Allergy Injection 2 Or More Completed 06/12/2017 68103 Allergy Injection 2 Or More Completed 05/29/2017 20421 Allergy Injection 2 Or More Completed 05/13/2017 71891 Allergy Antigens Single Or Multiple Completed 05/13/2017 30768 Allergy Injection 2 Or More Completed 04/29/2017 92454 Allergy Injection 2 Or More Completed 04/08/2017 05833 Allergy Injection 2 Or More Completed 03/18/2017 35839 Allergy Injection 2 Or More Completed 02/23/2017 35710 Allergy Injection 2 Or More Completed 02/09/2017 40232 Allergy Injection 2 Or More Completed 01/26/2017 58872 Allergy Injection 2 Or More Completed 01/26/2017 92063 Nitric Oxide Gas Determination Completed 01/26/2017 02837 Bronchodilation Responsiveness Spirometry Pre/Post Completed Bronchodil Adm 01/12/2017 14907 Allergy Injection 2 Or More Completed 12/29/2016 56612 Allergy Injection 2 Or More Completed 12/12/2016 95151 Allergy Injection 2 Or More Completed 11/26/2016 43140 Allergy Injection 2 Or More Completed 11/19/2016 55137 Allergy Antigens Single Or Multiple Completed 11/12/2016 80271 Allergy Injection 2 Or More Completed 10/29/2016 92180 Allergy Injection 2 Or More Completed 10/15/2016 19380 Allergy Injection 2 Or More Completed 10/03/2016 17802 Allergy Injection 2 Or More Completed 09/19/2016 29231 Allergy Injection 2 Or More Completed 09/05/2016 30590 Allergy Injection 2 Or More Completed 08/11/2016 32182 Allergy Injection 2 Or More Completed 07/23/2016 93662 Allergy Injection 2 Or More Completed 07/09/2016 58298 Allergy Injection 2 Or More Completed 06/27/2016 85785 Allergy Injection 2 Or More Completed 06/16/2016 26294 Allergy Injection 2 Or More Completed 05/28/2016 51463 Allergy Injection 2 Or More Completed 05/20/2016 70184 Allergy Antigens Single Or Multiple Completed 05/09/2016 18751 Allergy Injection 2 Or More Completed 04/23/2016 24050 Allergy Injection 2 Or More Completed 04/16/2016 19950 Allergy Injection 2 Or More Completed 04/09/2016 81698 Allergy Injection 2 Or More Completed 04/09/2016 31104 Allergy Injection 2 Or More Completed 04/04/2016 11144 Allergy Injection 2 Or More Completed 03/19/2016 15229 Allergy Injection 2 Or More Completed 03/12/2016 99309 Allergy Injection 2 Or More Completed 03/05/2016 05998 Allergy Injection 2 Or More Completed 02/27/2016 75561 Allergy Injection 2 Or More Completed 02/18/2016 76389 Allergy Injection 2 Or More Completed 01/28/2016 84067 Allergy Injection 2 Or More Completed 01/14/2016 10281 Allergy Injection 2 Or More Completed 01/07/2016 53658 Allergy Injection 2 Or More Completed 12/21/2015 56957 Allergy Injection 2 Or More Completed 12/14/2015 08087 Allergy Injection 2 Or More Completed 12/05/2015 21390 Allergy Injection 2 Or More Completed 11/28/2015 56839 Allergy Injection 2 Or More Completed 11/21/2015 20966 Allergy Injection 2 Or More Completed 11/14/2015 88150 Allergy Injection 2 Or More Completed 11/07/2015 98335 Allergy Injection 2 Or More Completed 10/31/2015 43054 Allergy Injection 2 Or More Completed 10/17/2015 44118 Allergy Injection 2 Or More Completed 10/10/2015 67970 Allergy Injection 2 Or More Completed 10/01/2015 67709 Allergy Injection 2 Or More Completed 09/26/2015 81693 Allergy Injection 2 Or More Completed Encounters Type Date Location Provider CPT E/M Dx Office Visit 01/26/2017 9:45[address] [place] [address] J30.1 J30.89 J45.40 Plan of Care 01/26/2017 - Triston Lezama MDJ30.1 Allergic rhinitis due to pollenNew Medication:Dulera 200-5 mcg/ActJ30.89 Other allergic jhaurwzcQ28.40 Moderate persistent asthma, uncomplicated
[2018-07-01 08:51] VITALS: BP 111/68
--- NOTE | 2018-07-01 09:17 | UC ---
Upper Extremity HPI - HPI Summary HPI Summary: This is rena Osei documenting for attending Abel Juarez MD. This patient is a 52 year old F presenting to [facility] [place] with a chief complaint of right shoulder pain that radiates down her arm into the pointer finger. Pt states she was fine yesterday and it was her day off but at 1700 that night the pain began. The patient rates the pain 10/10 in severity and describes it as feeling deep in her shoulder. Symptoms aggravated by movement. Patient denies neck pain and elbow pain. Pt states she cannot move it well and that the pain is constant. She went to work today but had to leave early. - History of Current Complaint Chief Complaint: UCUpperExtremity Stated Complaint: SHOULDER INJURY Time Seen by Provider: 07/01/18 09:07 Hx Obtained From: Patient Hx Last Menstrual Period: menopause Onset/Duration: Lasting Days - 1, Still Present Severity Initially: Severe Severity Currently: Severe Pain Intensity: 10 Pain Scale Used: 0-10 Numeric Location Of Pain: Is Discrete @ - right shoulder Aggravating Factor(s): Movement Associated Signs And Symptoms: Positive: Negative - neck pain, elbow pain, - Allergies/Home Medications Allergies/Adverse Reactions: Allergies Allergy/AdvReac Type Severity Reaction Status Date / Time clams Allergy Hives Verified 07/01/18 08:51 mold Allergy Anaphylatic Verified 07/01/18 08:51 Shock Penicillins Allergy Shortness Verified 07/01/18 08:51 of Breath NSAIDS (Non-Steroidal AdvReac Nausea And Verified 07/01/18 08:51 Anti-Inflamma Vomiting ENVIRONMENTAL Allergy Unknown Unknown Uncoded 07/01/18 08:51 Reaction Details MICE Allergy Unknown Unknown Uncoded 07/01/18 08:51 Reaction Details CHIPOTLE AdvReac Severe "SICK", Uncoded 07/01/18 08:51 NAUSEA PMH/Surg Hx/FS Hx/Imm Hx Cardiovascular History: Other Other Cardiovascular History: murmur Respiratory History: Asthma Neurological History: Other Other Neurological History: arthritis - Surgical History Surgical History: Yes Surgery Procedure, Year, and Place: tubal ligation. cholecystectomy - Family History Known Family History: Positive: Hypertension, Diabetes, Other - cervical cancer - Social History Occupation: Employed Full-time Lives: With Family Alcohol Use: None Substance Use Type: None Smoking Status (MU): Heavy Every Day Tobacco Smoker Type: Cigarettes Amount Used/How Often: 7 cigs daily Length of Time of Smoking/Using Tobacco: 20+ years Have You Smoked in the Last Year: Yes Review of Systems Constitutional: Negative - fever Musculoskeletal: Other: - right shoulder pain All Other Systems Reviewed And Are Negative: Yes Physical Exam - Summary Physical Exam Summary: General: well-appearing, no pain distress Skin: warm, color reflects adequate perfusion, dry Head: normal Eyes: EOMI, TRISH ENT: normal Neck: supple, nontender Respiratory: CTA, breath sounds present Cardiovascular: RRR Abdomen: soft, nontender Bowel: present Musculoskeletal: TTP in the right shoulder Neurological: sensory/motor intact, A&O x3 Psychological: affect/mood appropriate Triage Information Reviewed: Yes Vital Signs: Initial Vital Signs Temp 98 F 07/01/18 08:47 Pulse 84 07/01/18 08:47 Resp 16 07/01/18 08:47 BP 111/68 07/01/18 08:47 Pulse Ox 99 07/01/18 08:47 Vital Signs Reviewed: Yes Diagnostics - Radiology Shoulder Xray Radiology Interpretation Completed By: Radiologist - No fracture of the right shoulder is noted. Dr. Juarez has reviewed this report. Re-Evaluation - Re-Evaluation First Eval Re-Evaluation Time: 10:13 Change: Unchanged Comment: I discussed the test results with the patient. Upper Extremity Course/Dx - Course Course Of Treatment: PROBABLE ROTATOR CUFF INFLAMMATION. DISCUSSED ROM EXERCISES. F/U PMD; RECHECK SOONER IF WORSE. - Differential Dx/Diagnosis Provider Diagnoses: RIGHT SHOULDER PAIN Discharge - Sign-Out/Discharge Documenting (check all that apply): Patient Departure - Discharge Plan Condition: Stable Disposition: HOME Prescriptions: Ibuprofen TAB* [Motrin TAB* 600 MG] 600 mg PO Q6H PRN #30 tab PRN Reason: Pain methylPREDNISolone [Medrol Dosepak 4 MG*] 4 mg PO .SEE RAFAEL INSTRUCTION #1 rafael Patient Education Materials: Shoulder Pain (ED) Forms: *Work Release Referrals: Madhavi Moreno MD [Primary Care Provider] - Additional Instructions: FOLLOW UP WITH YOUR PRIMARY CARE DOCTOR. GET RECHECKED FOR ANY WORSENING OF YOUR CONDITION; PAIN, WEAKNESS, NUMBNESS OR QUESTIONS OR CONCERNS. - Billing Disposition and Condition Condition: STABLE Disposition: Home Attestation Statement Scribe Attestation: This is rena Osei documenting for attending Abel Juarez MD. User Type: Provider with Scribe Provider Attestation: The documentation recorded by the scribe accurately reflects the service I personally performed and the decisions made by me.
--- NOTE | 2018-07-01 09:48 | RAD ---
Indication: Right shoulder pain. 5 views of the right shoulder demonstrates no fracture. No other bone or joint abnormality is identified. Lung apices are unremarkable. IMPRESSION: No fracture of the right shoulder is noted.
== END 2018-07-01 10:25 | disposition home or self-care (01) ==
LOC: UCEAST 08:37
DX: M25.511 Pain in right shoulder (principal); Z88.0 Allergy status to penicillin; Z88.6 Allergy status to analgesic agent; F17.210 Nicotine dependence, cigarettes, uncomplicated
CPT/HCPCS: 99213; G0463

== ENCOUNTER 2018-08-09 16:36 | Emergency (ER) | payer MEDICARE ==
[2018-08-09 17:33] VITALS: BP 125/72
--- NOTE | 2018-08-09 18:05 | UC ---
Throat Pain/Nasal [place] HPI - HPI Summary HPI Summary: 52 yo female presents with fever, sinus pain/pressure/congestion, sore throat, and chest congestion for the last 4-5 days getting progressively worse. She has been taking zyrtec OTC with no relief. Does have a hx of COPD and uses daily inhalers. She is still smoking. Denies chills, SOB, chest pain, abdominal pain, n/v. 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 Onset/Duration: Gradual Onset Severity: Moderate Pain Intensity: 6 Pain Scale Used: 0-10 Numeric Cough: Nonproductive - Allergies/Home Medications Allergies/Adverse Reactions: Allergies Allergy/AdvReac Type Severity Reaction Status Date / Time clams Allergy Hives Verified 08/09/18 17:33 mold Allergy Anaphylatic Verified 08/09/18 17:33 Shock Penicillins Allergy Shortness Verified 08/09/18 17:33 of Breath NSAIDS (Non-Steroidal AdvReac Nausea And Verified 08/09/18 17:33 Anti-Inflamma Vomiting ENVIRONMENTAL Allergy Unknown Unknown Uncoded 08/09/18 17:33 Reaction Details MICE Allergy Unknown Unknown Uncoded 08/09/18 17:33 Reaction Details CHIPOTLE AdvReac Severe "SICK", Uncoded 08/09/18 17:33 NAUSEA Home Medications: Home Medications Fluticasone-Salmeterol 500-50* [Advair Diskus 500-50*] 1 puff INH BID 08/09/18 [ History Confirmed 08/09/18] Ibuprofen TAB* [Motrin TAB* 600 MG] 200 mg PO Q6H PRN 08/09/18 [History Confirmed 08/09/18] methylPREDNISolone [Medrol Dosepak 4 MG*] 8 mg PO .SEE RAFAEL INSTRUCTION PRN 08/09 [History Confirmed 08/09/18] PMH/Surg Hx/FS Hx/Imm Hx Respiratory History: COPD, Asthma - Surgical History Surgical History: Yes Surgery Procedure, Year, and Place: tubal ligation. cholecystectomy - Family History Known Family History: Positive: Hypertension, Diabetes, Other - cervical cancer - Social History Occupation: Employed Full-time Lives: With Family Alcohol Use: None Substance Use Type: None Smoking Status (MU): Light Every Day Tobacco Smoker Type: Cigarettes Amount Used/How Often: 7 cigs daily Length of Time of Smoking/Using Tobacco: 20+ years Have You Smoked in the Last Year: Yes Review of Systems Constitutional: Fever Skin: Negative Eyes: Negative ENT: Nasal Discharge, Sinus Congestion, Sinus Pain/Tenderness Respiratory: Cough Cardiovascular: Negative Gastrointestinal: Negative Neurovascular: Negative Neurological: Negative Psychological: Negative All Other Systems Reviewed And Are Negative: Yes Physical Exam - Summary Physical Exam Summary: GENERAL: NAD. WDWN. No pain distress. SKIN: No rashes, sores, lesions, or open wounds. HEENT: Head: AT/NC Eyes: Conjunctiva clear without inflammation or discharge. Ears: Hearing grossly normal. TMs intact, no bulging, erythema, or edema. Nose: Nasal mucosa mildly swollen and erythematous with yellow discharge. TTP maxillary and frontal sinus. Throat: Posterior oropharynx without exudates, erythema, or tonsillar enlargement. Uvula midline. NECK: Supple. Nontender. No lymphadenopathy. CHEST: Mild wheezing throughout. No r/r. No accessory muscle use. Breathing comfortably and in no distress. CV: RRR. Without m/r/g. Pulses intact. Cap refill <2seconds NEURO: Alert. PSYCH: Age appropriate behavior. Triage Information Reviewed: Yes Vital Signs: Initial Vital Signs Temp 97.4 F 08/09/18 17:28 Pulse 90 08/09/18 17:28 Resp 18 08/09/18 17:28 BP 125/72 08/09/18 17:28 Pulse Ox 98 08/09/18 17:28 Vital Signs Reviewed: Yes Throat Pain/Nasal Course/Dx - Course Course Of Treatment: Sinusitis. Cough - Differential Dx/Diagnosis Provider Diagnoses: Sinusitis. Cough Discharge - Sign-Out/Discharge Documenting (check all that apply): Patient Departure All imaging exams completed and their final reports reviewed: No Studies - Discharge Plan Condition: Stable Disposition: HOME Prescriptions: Azithromycin TAB* [Zithromax TAB (Z-RAFAEL) 250 mg #6 tabs] 2 tab PO .TODAY, THEN 1 DAILY #1 rafael Benzonatate CAP* [Tessalon 100 MG CAP*] 100 mg PO TID PRN #15 cap PRN Reason: Cough Patient Education Materials: Sinusitis (ED) Forms: *Work Release Referrals: Madhavi Moreno MD [Primary Care Provider] - Additional Instructions: If you develop a fever, shortness of breath, chest pain, new or worsening symptoms - please call your PCP or go to the ED. - Billing Disposition and Condition Condition: STABLE Disposition: Home - Attestation Statements Provider Attestation: I was available for consult. This patient was seen by the KOFI. The patient was not presented to, seen by, or examined by me. -Rosy
== END 2018-08-09 18:21 | disposition home or self-care (01) ==
LOC: UCEAST 16:36
CPT/HCPCS: 99212; G0463